=== PATIENT | male | born 1935 | race Caucasian/White ===

== ENCOUNTER 2020-03-12 11:20 | Outpatient (CLI) | payer MEDICARE, OTHER ==
--- NOTE | 2020-03-12 11:36 | RAD ---
XR Chest Pa Lat STANDARD HISTORY: Cough FINDINGS: The heart size is normal. There are changes of median sternotomy. There is mild elevation t he right hemidiaphragm. The lungs are well expanded without focal areas of consolidation, pneumothorax or pleural effusions. There are degenerative changes in the spine.. IMPRESSION: No radiographic evidence of acute cardiopulmonary process.
== END 2020-03-12 11:21 | disposition home or self-care (01) ==
LOC: BICRAD 11:20
PROVIDERS: ATTEND Family Medicine
DX: R05 Cough (principal)
CPT/HCPCS: 71046

== ENCOUNTER 2022-07-12 09:57 | Outpatient (CLI) | payer MEDICARE, OTHER ==
[~2022-07-12 09:57] MED LIST: Iopamidol-370 76% 500 ML 1 ML ONE
== END 2022-07-12 09:58 | disposition home or self-care (01) ==
LOC: BICCT 09:57
PROVIDERS: ATTEND Specialist
DX: R59.0 Localized enlarged lymph nodes (principal); I65.23 Occlusion and stenosis of bilateral carotid arteries
CPT/HCPCS: 70491; 82565; Q9967

== ENCOUNTER 2022-07-17 11:50 | Outpatient (CLI) | payer MEDICARE, OTHER ==
[2022-07-17] MEDS ORDERED: Iopamidol 370 76% 100 ML VIAL ONE (14:25)
[2022-07-17] MEDS ORDERED: GASTROGRAFIN 30 ML BOT ONE (14:25)
== END 2022-07-17 11:51 | disposition home or self-care (01) ==
LOC: CT 11:50
PROVIDERS: ATTEND Specialist
DX: R59.0 Localized enlarged lymph nodes (principal); D73.89 Other diseases of spleen; K57.30 Diverticulosis of large intestine without perforation or abscess without bleeding; E27.8 Other specified disorders of adrenal gland
CPT/HCPCS: 71260; 74177; 82565; Q9963; Q9967

== ENCOUNTER 2022-08-23 10:46 | Outpatient (CLI) | payer MEDICARE, OTHER ==
[2022-08-23 12:51] LABS: Anion Gap 13 mmol/L (10-20); BUN (Urea Nitrogen) 15 mg/dL (8.4-25.7); Calc. Creatinine Clearance 0 mL/min (70-130); Calcium 9.6 mg/dL (7.8-10.44); Carbon Dioxide 30 mmol/L (23-31); Chloride 103 mmol/L (98-107); Estimated GFR 74; Glucose 102 mg/dL (83-110); Potassium 4.4 mmol/L (3.5-5.1); Sodium 142 mmol/L (136-145)
[2022-08-23 13:12] LABS: Hemoglobin 12.5 g/dL (13.5-17.5); Mean Corpuscular HGB CONC 32.8 g/dL (32.0-36.0); Mean Corpuscular Hemoglobin 28.1 pg (27.0-33.0); Mean Corpuscular Volume 85.6 fl (81.2-95.1); Mean Platelet Volume 9.8 fl (7.4-10.4); Platelet Count 279 10x3/uL (150-450); RBC Distribution Width 13.7 % (11.5-14.5); Red Blood Cell (RBC) Count 4.45 10x6/uL (4.32-5.72); White Blood Cell (WBC) Count 4.9 10x3/uL (3.5-10.5)
== END 2022-08-23 10:47 | disposition home or self-care (01) ==
LOC: LABBT 10:46
PROVIDERS: ATTEND Specialist
DX: Z01.818 Encounter for other preprocedural examination (principal); R22.1 Localized swelling, mass and lump, neck; R61 Generalized hyperhidrosis; R59.1 Generalized enlarged lymph nodes; R63.4 Abnormal weight loss; M89.9 Disorder of bone, unspecified
CPT/HCPCS: 80048; 85027; 93005; 93010

== ENCOUNTER 2022-09-08 08:00 | Outpatient (CLI) | payer MEDICARE, OTHER | END 2022-09-08 08:01 | disposition home or self-care (01) | LOC: PET 08:00 | PROVIDERS: ATTEND Internal Medicine Hematology & Oncology | DX: C83.31 Diffuse large B-cell lymphoma, lymph nodes of head, face, and neck (principal); R59.0 Localized enlarged lymph nodes | CPT/HCPCS: 78815; A9552 ==

== ENCOUNTER 2022-09-19 05:37 | Day surgery (SDC) | payer MEDICARE, OTHER ==
[2022-09-15 11:03] VITALS: BMI 27.7
[2022-09-19] MEDS ORDERED: Ketorolac Tromethamine 30 MG/ML VIAL ONE (06:15)
[2022-09-19] MEDS ORDERED: Acetaminophen 500 MG TAB ONE (06:15)
[2022-09-19 06:48] LABS: #Eosinphils 0.1 thou/uL (0.0-0.7); #Lymphocytes 1.5 thou/uL (1.20-3.40); #Monocytes 0.7 thou/uL (0.11-0.59); #Neutrophils 3.2 thou/uL (1.40-6.50); %Basophils 0.2 % (0.0-1.0); %Eosinophils 2.2 % (0.0-10.0); %Lymphocytes 26.7 % (21.0-51.0); %Monocytes 13.2 % (0.0-10.0); %Neutrophils 57.7 % (42.0-75.0); Hemoglobin 12.8 g/dL (14.0-18.0); Mean Corpuscular HGB CONC 33.6 g/dL (32.0-36.0); Mean Corpuscular Hemoglobin 29.1 pg (27.0-31.0); Mean Corpuscular Volume 86.6 fl (78.0-98.0); Mean Platelet Volume 7.5 fL (7.4-10.4); Platelet Count 238 10x3/uL (130-400); RBC Distribution Width 12.5 % (11.5-14.5); Red Blood Cell (RBC) Count 4.41 mill/uL (4.70-6.10); White Blood Cell (WBC) Count 5.5 10x3/uL (4.8-10.8)
[2022-09-19] MEDS ORDERED: FENTANYL 50 MCG/ML 1 ML VIAL ONE (06:52)
[2022-09-19] MEDS ORDERED: Midazolam HCl 2 mg/2 ml Vial ONE (06:53)
[2022-09-19] MEDS ORDERED: Famotidine/PF 20 mg/2ml Vial ONE (06:55)
[2022-09-19] MEDS ORDERED: PROPOFOL 60 ML ONE (06:55)
[2022-09-19] MEDS ORDERED: Bupivacaine HCl 0.5%/Epinephrine 1:200,000/PF 30 ml Vial ONE (06:58)
[2022-09-19] MEDS ORDERED: Heparin 5,000 UNITS/ML VIAL ONE (06:58)
[2022-09-19] MEDS ORDERED: CEFAZOLIN 2 GM VIAL ONE (07:05)
[2022-09-19] MEDS ORDERED: Sodium Chloride 0.9% 100 ML ONE (07:05)
[2022-09-19 07:11] LABS: Anion Gap 12 mmol/L (10-20); BUN (Urea Nitrogen) 17 mg/dL (8.4-25.7); Calc. Creatinine Clearance 67 mL/min (70-130); Calcium 9.3 mg/dL (7.8-10.44); Carbon Dioxide 30 mmol/L (23-31); Chloride 101 mmol/L (98-107); Estimated GFR 67; Glucose 106 mg/dL (83-110); Potassium 4.3 mmol/L (3.5-5.1); Sodium 139 mmol/L (136-145)
[2022-09-19] MEDS ORDERED: ePHEDrine 50 MG/ML VIAL ONE (07:42)
[2022-09-19] MEDS ORDERED: Ondansetron PF 4 MG/2 ML Vial ONE (07:42)
[2022-09-19] MEDS ORDERED: Lidocaine 1% PF 5 ML VIAL ONE (07:42)
[2022-09-19] MEDS ORDERED: PROPOFOL 200 MG/20 ML VIAL ONE (07:42)
[2022-09-19] MEDS ORDERED: Lidocaine 2% PF 5 ML VIAL ONE (07:46)
== END 2022-09-19 09:09 | disposition home or self-care (01) ==
LOC: SDC 05:37
PROVIDERS: ATTEND Specialist
PROC: 0JH60WZ Insertion of Totally Implantable Vascular Access Device into Chest Subcutaneous Tissue and Fascia, Open Approach (ICD-10-PCS; principal; 2022-09-19)
PROC: 02HV33Z Insertion of Infusion Device into Superior Vena Cava, Percutaneous Approach (ICD-10-PCS; 2022-09-19)
DX: C83.30 Diffuse large B-cell lymphoma, unspecified site (principal); I10 Essential (primary) hypertension; I25.10 Atherosclerotic heart disease of native coronary artery without angina pectoris; N40.0 Benign prostatic hyperplasia without lower urinary tract symptoms; Z79.82 Long term (current) use of aspirin; Z79.890 Hormone replacement therapy; Z79.899 Other long term (current) drug therapy; Z95.1 Presence of aortocoronary bypass graft
CPT/HCPCS: 36561; 71045; 80048; 85025; J3010; C1788; J1642; J1644; J1885; J2001; J2250; J2405; J2704; J3490; S0028

== ENCOUNTER 2022-09-26 08:10 | Day surgery (SDC) | payer MEDICARE, OTHER ==
[2022-09-22 14:24] VITALS: BMI 27.7
[2022-09-26 08:40] LABS: INR-International Normal Ratio 0.9; PTT 27.3 sec (22.9-36.1); Prothrombin Time 12.9 sec (12.0-14.7)
[2022-09-26 11:26] VITALS: BP 157/77; TEMP 98.7
== END 2022-09-26 11:10 | disposition home or self-care (01) ==
LOC: CT 08:10
PROVIDERS: ATTEND Internal Medicine Hematology & Oncology
PROC: 0QB23ZX Excision of Right Pelvic Bone, Percutaneous Approach, Diagnostic (ICD-10-PCS; principal; 2022-09-26)
DX: C83.31 Diffuse large B-cell lymphoma, lymph nodes of head, face, and neck (principal); I48.91 Unspecified atrial fibrillation; I25.10 Atherosclerotic heart disease of native coronary artery without angina pectoris; I10 Essential (primary) hypertension; E78.00 Pure hypercholesterolemia, unspecified; Z87.891 Personal history of nicotine dependence; Z79.82 Long term (current) use of aspirin; Z79.890 Hormone replacement therapy; Z79.899 Other long term (current) drug therapy
CPT/HCPCS: 20225; 77002; 85097; 85610; 85730; 88184; 88237; 88264; 88280; 88305; 88311; 88313; 88341; 88342

== ENCOUNTER 2022-10-27 10:15 | Outpatient (CLI) | payer MEDICARE, OTHER | END 2022-10-27 10:16 | LOC: PET 10:15 | PROVIDERS: ATTEND Internal Medicine Hematology & Oncology | DX: C83.31 Diffuse large B-cell lymphoma, lymph nodes of head, face, and neck (principal) | CPT/HCPCS: 78815; A9552 ==

== ENCOUNTER → 2023-01-25 | Outpatient (CLI) | payer MEDICARE, OTHER | LOC: PET 11:45 | PROVIDERS: ATTEND Internal Medicine Hematology & Oncology | DX: C83.31 Diffuse large B-cell lymphoma, lymph nodes of head, face, and neck (principal) | CPT/HCPCS: 78815; A9552 ==

== ENCOUNTER 2023-07-27 12:19 | Outpatient (CLI) | payer MEDICARE, OTHER ==
[2023-07-27] MEDS ORDERED: Iopamidol 370 76% 100 ML VIAL ONE (13:04)
== END 2023-07-27 12:20 | disposition home or self-care (01) ==
LOC: CT 12:19
PROVIDERS: ATTEND Internal Medicine Hematology & Oncology
DX: C83.31 Diffuse large B-cell lymphoma, lymph nodes of head, face, and neck (principal); R59.0 Localized enlarged lymph nodes; D73.89 Other diseases of spleen
CPT/HCPCS: 71260; 74177; 82565; Q9967

== ENCOUNTER 2024-01-25 09:51 | Outpatient (CLI) | payer MEDICARE, OTHER ==
[2024-01-25] MEDS ORDERED: Iopamidol 370 76% 100 ML VIAL ONE (11:57)
== END 2024-01-25 09:52 | disposition home or self-care (01) ==
LOC: CT 09:51
PROVIDERS: ATTEND Internal Medicine Hematology & Oncology
DX: C83.31 Diffuse large B-cell lymphoma, lymph nodes of head, face, and neck (principal)
CPT/HCPCS: 71260; 74177; 82565; J1642; Q9967

== ENCOUNTER 2024-04-07 16:04 | Outpatient (CLI) | payer MEDICARE, OTHER | END 2024-04-07 16:05 | disposition home or self-care (01) | LOC: SCSRAD 16:04 | PROVIDERS: ATTEND Family Medicine | DX: R05.9 Cough, unspecified (principal) | CPT/HCPCS: 71046 ==

== ENCOUNTER 2024-07-25 07:15 | Outpatient (CLI) | payer MEDICARE, OTHER ==
[2024-07-25] MEDS ORDERED: Iopamidol 370 76% 100 ML VIAL ONE (14:44)
== END 2024-07-25 07:16 | disposition home or self-care (01) ==
LOC: CT 07:15
PROVIDERS: ATTEND Internal Medicine Hematology & Oncology
DX: C83.31 Diffuse large B-cell lymphoma, lymph nodes of head, face, and neck (principal)
CPT/HCPCS: 36415; 71260; 74177; 82565; Q9967

== ENCOUNTER 2025-05-15 09:33 | Outpatient (CLI) | payer MEDICARE, OTHER | END 2025-05-15 09:34 | disposition home or self-care (01) | LOC: LABBT 09:33 | PROVIDERS: ATTEND Internal Medicine Cardiovascular Disease | DX: Z01.818 Encounter for other preprocedural examination (principal); I48.0 Paroxysmal atrial fibrillation; Z91.81 History of falling | CPT/HCPCS: 93005; 93010 ==

== ENCOUNTER 2025-05-15 21:12 | Inpatient (IN) | payer MEDICARE, OTHER ==
[~2025-05-15 21:12] MED LIST changes: -Iopamidol-370 76% 500 ML 1 ML ONE; +Iopamidol-370 76% 500 ML MDV (1 ML CHARGE) ONE
[2025-05-15 21:59] LABS: #Basophils 0.05 10x3/uL (0.0-0.2); #Eosinophils 0.15 10x3/uL (0.0-0.7); #Monocytes 0.67 10x3/uL (0.11-0.59); #Neutrophils 4.76 10x3/uL (1.40-6.50); %Basophils 0.7 % (0.0-1.0); %Eosinophils 2.2 % (0.0-10.0); %Lymphocytes 17.6 % (21.0-51.0); %Monocytes 9.7 % (0.0-10.0); %Neutrophils 69.2 % (42.0-75.0); Hematocrit 24.9 % (42.0-52.0); Hemoglobin 7.4 g/dL (14.0-18.0); Mean Corpuscular Hemoglobin 22.1 pg (27.0-31.0); Mean Corpuscular Volume 74.3 fL (78.0-98.0); Platelet Count 269 10x3/uL (130-400); Red Blood Cell (RBC) Count 3.35 mill/uL (4.70-6.10); White Blood Cell (WBC) Count 6.88 10x3/uL (4.8-10.8)
[2025-05-15 22:08] LABS: ALT (SGPT) 24 U/L (Less than 45); AST (SGOT) 21 U/L (11-34); Albumin 3.5 g/dL (3.1-4.5); Alkaline Phosphatase 98 U/L (40-110); Anion Gap 9 mmol/L (10-20); BUN (Urea Nitrogen) 21 mg/dL (8.4-25.7); Bilirubin, Total 0.5 mg/dL (0.3-1.2); Calc. Creatinine Clearance 0 mL/min (70-130); Calcium 8.8 mg/dL (7.8-10.44); Carbon Dioxide 25 mmol/L (23-31); Chloride 108 mmol/L (98-107); Globulin 2.6 g/dL (2.4-3.5); Glucose 103 mg/dL (83-110); Magnesium 2.2 mg/dL (1.6-2.6); Potassium 4.2 mmol/L (3.5-5.1); Sodium 138 mmol/L (136-145)
[2025-05-15 22:45] LABS: Burr Cells SLIGHT = 2-5 cells HPF (0-1); Microcytosis SLIGHT = 6-15 cells HPF (0-5); Platelet Adequacy Comment Platelets Normal; Polychromasia SLIGHT = 2-3 cells HPF (0-2)
[2025-05-16] MEDS ORDERED: Calcium Carbonate 500 MG ChewTAB PO PRN (00:09)
[2025-05-16 01:43] LABS: Iron 92 ug/dL (65-175); Iron Binding Capacity, Total 356 mcg/dL (261-462); Iron Binding Capacity, Total 359 mcg/dL (261-462)
[2025-05-16 01:52] VITALS: BMI 27.9
[2025-05-16 05:18] LABS: #Basophils 0.05 10x3/uL (0.0-0.2); #Eosinophils 0.23 10x3/uL (0.0-0.7); #Monocytes 0.64 10x3/uL (0.11-0.59); #Neutrophils 3.60 10x3/uL (1.40-6.50); %Basophils 0.8 % (0.0-1.0); %Eosinophils 3.9 % (0.0-10.0); %Lymphocytes 23.1 % (21.0-51.0); %Monocytes 10.9 % (0.0-10.0); %Neutrophils 61.1 % (42.0-75.0); Hematocrit 26.5 % (42.0-52.0); Hemoglobin 7.7 g/dL (14.0-18.0); Mean Corpuscular Hemoglobin 22.8 pg (27.0-31.0); Mean Corpuscular Volume 78.4 fL (78.0-98.0); Platelet Count 264 10x3/uL (130-400); Red Blood Cell (RBC) Count 3.38 mill/uL (4.70-6.10); White Blood Cell (WBC) Count 5.89 10x3/uL (4.8-10.8)
[2025-05-16 05:37] LABS: Anion Gap 11 mmol/L (10-20); BUN (Urea Nitrogen) 19 mg/dL (8.4-25.7); Calc. Creatinine Clearance 69 mL/min (70-130); Calcium 8.5 mg/dL (7.8-10.44); Carbon Dioxide 26 mmol/L (23-31); Chloride 106 mmol/L (98-107); Glucose 95 mg/dL (83-110); Potassium 4.1 mmol/L (3.5-5.1); Sodium 139 mmol/L (136-145)
[2025-05-16] MEDS: Mometasone 200 MCG/Formoterol 5 MCG 120 PUFF INHALER INH SCH (08:11)
[2025-05-16] MEDS: Aspirin 81 mg Enteric Coated Tablet PO SCH (08:47)
[2025-05-16] MEDS: Metoprolol Succinate XL 25 MG ER.TAB PO SCH (21:13)
[2025-05-16] MEDS: Finasteride 5 MG TAB PO SCH (21:16)
[2025-05-17] MEDS: Acetaminophen 325 MG TAB PO PRN (05:11)
[2025-05-17 05:24] LABS: #Basophils 0.04 10x3/uL (0.0-0.2); #Eosinophils 0.24 10x3/uL (0.0-0.7); #Monocytes 0.66 10x3/uL (0.11-0.59); #Neutrophils 4.26 10x3/uL (1.40-6.50); %Basophils 0.6 % (0.0-1.0); %Eosinophils 3.7 % (0.0-10.0); %Lymphocytes 20.1 % (21.0-51.0); %Monocytes 10.1 % (0.0-10.0); %Neutrophils 65.2 % (42.0-75.0); Hematocrit 25.2 % (42.0-52.0); Hemoglobin 7.6 g/dL (14.0-18.0); Mean Corpuscular Hemoglobin 23.2 pg (27.0-31.0); Mean Corpuscular Volume 76.8 fL (78.0-98.0); Platelet Count 259 10x3/uL (130-400); Red Blood Cell (RBC) Count 3.28 mill/uL (4.70-6.10); White Blood Cell (WBC) Count 6.53 10x3/uL (4.8-10.8)
[2025-05-17 05:42] LABS: Anion Gap 10 mmol/L (10-20); BUN (Urea Nitrogen) 16 mg/dL (8.4-25.7); Calc. Creatinine Clearance 71 mL/min (70-130); Calcium 8.4 mg/dL (7.8-10.44); Carbon Dioxide 27 mmol/L (23-31); Chloride 105 mmol/L (98-107); Glucose 94 mg/dL (83-110); Potassium 3.7 mmol/L (3.5-5.1); Sodium 138 mmol/L (136-145)
[2025-05-17] MEDS: Sodium Ferric Gluconate 250 MG in Sodium Chloride 0.9% 250 ML 250 ML IVPB SCH (10:20)
[2025-05-17] MEDS ORDERED: Iopamidol-370 76% 500 ML MDV (1 ML CHARGE) ONE (15:51)
[2025-05-17 16:17] LABS: #Basophils 0.05 10x3/uL (0.0-0.2); #Eosinophils 0.21 10x3/uL (0.0-0.7); #Monocytes 0.48 10x3/uL (0.11-0.59); #Neutrophils 3.74 10x3/uL (1.40-6.50); %Basophils 0.9 % (0.0-1.0); %Eosinophils 3.6 % (0.0-10.0); %Lymphocytes 22.4 % (21.0-51.0); %Monocytes 8.3 % (0.0-10.0); %Neutrophils 64.3 % (42.0-75.0); Hematocrit 30.2 % (42.0-52.0); Hemoglobin 9.0 g/dL (14.0-18.0); Mean Corpuscular Hemoglobin 23.6 pg (27.0-31.0); Mean Corpuscular Volume 79.1 fL (78.0-98.0); Platelet Count 244 10x3/uL (130-400); Red Blood Cell (RBC) Count 3.82 mill/uL (4.70-6.10); White Blood Cell (WBC) Count 5.81 10x3/uL (4.8-10.8)
[2025-05-18 05:10] LABS: #Basophils 0.06 10x3/uL (0.0-0.2); #Eosinophils 0.27 10x3/uL (0.0-0.7); #Monocytes 0.72 10x3/uL (0.11-0.59); #Neutrophils 3.70 10x3/uL (1.40-6.50); %Basophils 1.0 % (0.0-1.0); %Eosinophils 4.6 % (0.0-10.0); %Lymphocytes 19.6 % (21.0-51.0); %Monocytes 12.1 % (0.0-10.0); %Neutrophils 62.4 % (42.0-75.0); Hematocrit 28.9 % (42.0-52.0); Hemoglobin 8.6 g/dL (14.0-18.0); Mean Corpuscular Hemoglobin 23.5 pg (27.0-31.0); Mean Corpuscular Volume 79.0 fL (78.0-98.0); Platelet Count 284 10x3/uL (130-400); Red Blood Cell (RBC) Count 3.66 mill/uL (4.70-6.10); White Blood Cell (WBC) Count 5.93 10x3/uL (4.8-10.8)
[2025-05-18] MEDS: GoLYTELY 4,000 ml Bottle PO SCH (17:49)
[2025-05-19 05:33] LABS: #Basophils 0.05 10x3/uL (0.0-0.2); #Eosinophils 0.26 10x3/uL (0.0-0.7); #Monocytes 0.54 10x3/uL (0.11-0.59); #Neutrophils 2.88 10x3/uL (1.40-6.50); %Basophils 1.0 % (0.0-1.0); %Eosinophils 5.2 % (0.0-10.0); %Lymphocytes 24.6 % (21.0-51.0); %Monocytes 10.9 % (0.0-10.0); %Neutrophils 58.1 % (42.0-75.0); Hematocrit 29.7 % (42.0-52.0); Hemoglobin 8.9 g/dL (14.0-18.0); Mean Corpuscular Hemoglobin 23.4 pg (27.0-31.0); Mean Corpuscular Volume 78.2 fL (78.0-98.0); Platelet Count 260 10x3/uL (130-400); Red Blood Cell (RBC) Count 3.80 mill/uL (4.70-6.10); White Blood Cell (WBC) Count 4.96 10x3/uL (4.8-10.8)
[2025-05-19 05:50] LABS: ALT (SGPT) 17 U/L (Less than 45); AST (SGOT) 19 U/L (11-34); Albumin 3.1 g/dL (3.1-4.5); Alkaline Phosphatase 90 U/L (40-110); Anion Gap 9 mmol/L (10-20); BUN (Urea Nitrogen) 9 mg/dL (8.4-25.7); Bilirubin, Total 0.6 mg/dL (0.3-1.2); Calc. Creatinine Clearance 80 mL/min (70-130); Calcium 8.3 mg/dL (7.8-10.44); Carbon Dioxide 29 mmol/L (23-31); Chloride 108 mmol/L (98-107); Globulin 2.7 g/dL (2.4-3.5); Glucose 96 mg/dL (83-110); Potassium 4.1 mmol/L (3.5-5.1); Sodium 142 mmol/L (136-145)
[2025-05-19] MEDS ORDERED: PROPOFOL 40 ML ONE (09:05)
[2025-05-19] MEDS ORDERED: Lidocaine 1% PF 5 ML VIAL ONE ×2 (09:07→09:30)
[2025-05-19] MEDS ORDERED: GLYCOPYRROLATE/PF 0.2 MG/ML VIAL ONE (09:07)
[2025-05-19] MEDS ORDERED: Glycopyrrolate 0.2 MG/ML 5 ML SYRINGE ONE (09:30)
[2025-05-19] MEDS ORDERED: PROPOFOL 200 MG/20 ML VIAL ONE (09:30)
[2025-05-19] MEDS: Sodium Ferric Gluconate 250 MG in Sodium Chloride 0.9% 250 ML 250 ML IVPB SCH (16:13)
[2025-05-20 05:25] LABS: #Basophils 0.05 10x3/uL (0.0-0.2); #Eosinophils 0.26 10x3/uL (0.0-0.7); #Monocytes 0.63 10x3/uL (0.11-0.59); #Neutrophils 3.84 10x3/uL (1.40-6.50); %Basophils 0.8 % (0.0-1.0); %Eosinophils 4.2 % (0.0-10.0); %Lymphocytes 22.1 % (21.0-51.0); %Monocytes 10.2 % (0.0-10.0); %Neutrophils 62.4 % (42.0-75.0); Hematocrit 30.3 % (42.0-52.0); Hemoglobin 9.0 g/dL (14.0-18.0); Mean Corpuscular Hemoglobin 23.7 pg (27.0-31.0); Mean Corpuscular Volume 79.7 fL (78.0-98.0); Platelet Count 252 10x3/uL (130-400); Red Blood Cell (RBC) Count 3.80 mill/uL (4.70-6.10); White Blood Cell (WBC) Count 6.16 10x3/uL (4.8-10.8)
[2025-05-20 05:47] LABS: ALT (SGPT) 16 U/L (Less than 45); AST (SGOT) 21 U/L (11-34); Albumin 3.1 g/dL (3.1-4.5); Alkaline Phosphatase 89 U/L (40-110); Anion Gap 9 mmol/L (10-20); BUN (Urea Nitrogen) 11 mg/dL (8.4-25.7); Bilirubin, Total 0.4 mg/dL (0.3-1.2); Calc. Creatinine Clearance 65 mL/min (70-130); Calcium 8.4 mg/dL (7.8-10.44); Carbon Dioxide 28 mmol/L (23-31); Chloride 107 mmol/L (98-107); Globulin 2.7 g/dL (2.4-3.5); Glucose 107 mg/dL (83-110); Potassium 4.1 mmol/L (3.5-5.1); Sodium 140 mmol/L (136-145)
[2025-05-20 10:26] LABS: INR-International Normal Ratio 1.1; Prothrombin Time 14.5 sec (12.0-14.7)
[2025-05-20 10:27] LABS: PTT 38.1 sec (22.9-36.1)
[2025-05-20] MEDS ORDERED: Lidocaine 1% PF 5 ML VIAL ONE (11:30)
[2025-05-20] MEDS ORDERED: Sodium Bicarbonate 2.5 MEQ/5 ML SDV ONE (11:31)
[2025-05-20 15:34] VITALS: BP 143/82; TEMP 97.8
== END 2025-05-20 15:36 | disposition home or self-care (01) | DRG 812 ==
LOC: ERS 21:12 → MSONC 05-16 00:09 → OBSVTOIN 05-16 17:08
PROVIDERS: ADMIT Internal Medicine; ATTEND Student in an Organized Health Care Education/Training Program
PROC: 30233N1 Transfusion of Nonautologous Red Blood Cells into Peripheral Vein, Percutaneous Approach (ICD-10-PCS; 2025-05-15)
PROC: 079T3ZX Drainage of Bone Marrow, Percutaneous Approach, Diagnostic (ICD-10-PCS; principal; 2025-05-20)
PROC: 07DR3ZX Extraction of Iliac Bone Marrow, Percutaneous Approach, Diagnostic (ICD-10-PCS; 2025-05-20)
DX: D64.9 Anemia, unspecified (principal); C85.9A Non-Hodgkin lymphoma, unspecified, in remission; I48.91 Unspecified atrial fibrillation; K21.9 Gastro-esophageal reflux disease without esophagitis; E78.5 Hyperlipidemia, unspecified; N40.0 Benign prostatic hyperplasia without lower urinary tract symptoms; F10.90 Alcohol use, unspecified, uncomplicated; I48.0 Paroxysmal atrial fibrillation; R05.3 Chronic cough; Z98.890 Other specified postprocedural states; Z95.1 Presence of aortocoronary bypass graft; Z87.891 Personal history of nicotine dependence; Z79.82 Long term (current) use of aspirin; Z79.01 Long term (current) use of anticoagulants; Z79.899 Other long term (current) drug therapy; Z79.890 Hormone replacement therapy
CPT/HCPCS: 36415; 36430; 38222; 71275; 74177; 77002; 77012; 80048; 80053; 82607; 82728; 83010; 83540; 83550; 83615; 83735; 83880; 84484; 85025; 85046; 85610; 85730; 86850; 86900; 86901; 87428; 88184; 88185; 88237; 88264; 88280; 93005; 93306; 94664; J2250; J2704; J2916; J3010; J3490; J7050; P9016; Q9967

== ENCOUNTER 2025-07-23 10:18 | Outpatient (CLI) | payer MEDICARE, OTHER ==
[2025-07-23 10:42] LABS: #Basophils 0.05 10x3/uL (0.0-0.2); #Eosinophils 0.09 10x3/uL (0.0-0.7); #Monocytes 0.45 10x3/uL (0.11-0.59); #Neutrophils 3.14 10x3/uL (1.40-6.50); %Basophils 1.0 % (0.0-1.0); %Eosinophils 1.8 % (0.0-10.0); %Lymphocytes 25.8 % (21.0-51.0); %Monocytes 8.9 % (0.0-10.0); %Neutrophils 62.3 % (42.0-75.0); Hematocrit 39.6 % (42.0-52.0); Hemoglobin 12.1 g/dL (14.0-18.0); Mean Corpuscular Hemoglobin 26.2 pg (27.0-31.0); Mean Corpuscular Volume 85.7 fL (78.0-98.0); Platelet Count 206 10x3/uL (130-400); Red Blood Cell (RBC) Count 4.62 mill/uL (4.70-6.10); White Blood Cell (WBC) Count 5.04 10x3/uL (4.8-10.8)
[2025-07-23 10:58] LABS: INR-International Normal Ratio 1.4; Prothrombin Time 17.5 sec (12.0-14.7)
[2025-07-23 10:59] LABS: PTT 39.6 sec (22.9-36.1)
[2025-07-23 11:27] LABS: ALT (SGPT) 16 U/L (Less than 45); AST (SGOT) 22 U/L (11-34); Albumin 3.6 g/dL (3.1-4.5); Alkaline Phosphatase 87 U/L (40-110); Anion Gap 11 mmol/L (10-20); BUN (Urea Nitrogen) 22 mg/dL (8.4-25.7); Bilirubin, Total 0.5 mg/dL (0.3-1.2); Calc. Creatinine Clearance 0 mL/min (70-130); Calcium 9.2 mg/dL (7.8-10.44); Carbon Dioxide 30 mmol/L (23-31); Chloride 104 mmol/L (98-107); Globulin 3.0 g/dL (2.4-3.5); Glucose 99 mg/dL (83-110); Potassium 4.6 mmol/L (3.5-5.1); Sodium 140 mmol/L (136-145)
== END 2025-07-23 10:19 | disposition home or self-care (01) ==
LOC: LABBT 10:18
PROVIDERS: ATTEND Internal Medicine Cardiovascular Disease
DX: Z01.818 Encounter for other preprocedural examination (principal); I48.0 Paroxysmal atrial fibrillation; Z91.81 History of falling
CPT/HCPCS: 80053; 85025; 85610; 85730; 86850; 86900; 86901; 93005; 93010